=== PATIENT | male | born 1965 | race Caucasian/White ===

== ENCOUNTER 2017-08-10 06:52 | Observation (INO) | payer BC ==
[2017-08-10] MEDS ORDERED: ACETAMINOPHEN/HYDROcodone 325 MG/7.5 MG TAB PO PRN (13:45)
[2017-08-10] MEDS ORDERED: ONDANSETRON HCL 4 MG/2 ML VIAL IV PUSH PRN (13:45)
[2017-08-10] MEDS ORDERED: ACETAMINOPHEN 500 MG CPLT PO PRN (13:45)
--- NOTE | 2017-08-10 13:47 | HHI.HP ---
[facility] Primary Care Physician Mak Fernandez MD Chief Complaint Chest pain History of Present Illness This is a 52-year-old male that presents to [facility] ED with complaint of left chest discomfort does been constantly present for greater than 24 hours. He was then subsequently transferred via [facility] to the chest pain center to further evaluate his chest discomfort. Describes it as a pressure. Primarily the discomfort was a 2 out of 10. He states he was awoken about 4:00 this morning with the discomfort intensifying to about a 3-4 out of 10. Denies associated shortness breath, nausea, or diaphoresis. Found nothing to worsen or improve it. At the same time this morning he developed a numbness/tingling in the left arm which she states is not terribly unusual for him. 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 He states that he had a stress test to 3 years ago secondary to the numbness/tingling in his left arm and that it was okay. Not followed by luggage liner. Denies hypertension, hyperlipidemia, diabetes, and known CAD. Lifetime nonsmoker. States he exercises essentially daily. 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 Has no discomforts in chest while doing this. Denies recent illness. Denies fevers or chills. Review of Systems General: Patient denies fevers, chills recent, and recent travel HEENT: Patient denies headache, sore throat, difficulty swallowing. Cardiovascular: Has the chest discomfort as mentioned above. Denies sensation of heart beating rapidly or irregularly. No syncope. Denies diaphoresis. Respiratory: Denies shortness of breath or inspirational chest discomfort. Denies coughing wheezing or hemoptysis. GI: Patient denies nausea, vomiting, diarrhea, abdominal pain, bloody stools. Musculoskeletal: Patient denies joint pain or edema. Denies calf pain or edema. Neurovascular: Patient denies numbness, tingling, weakness in extremities. Denies headache. Endocrine: Denies polyuria and polydipsia. Hematologic: Denies easy bruising. Skin: Denies rash or itching. Past Family Social History Allergies: Coded Allergies: No Known Allergies (Unverified , 08/10/17) Past Medical History Kidney stones. GERD. Denies hypertension, hyperlipidemia, diabetes, CAD, and tobacco abuse. Past Surgical History Kidney stones. Hernia repair. Reported Medications Reported Meds & Active Scripts Active No Active Prescriptions or Reported Medications Family History States that his father had CAD in his 60s. Had a CABG. Social History Lifetime nonsmoker. Has occasional alcohol. Denies illicit drugs. 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 Physical Exam Physical Exam GENERAL: This is a well-nourished, well-developed patient, in no apparent distress. Patient speaks in clear complete sentences. Patient is pleasant. HEENT: Head is atraumatic and normocephalic. Neck is supple without lymphadenopathy and trachea is midline. No JVD or carotid bruits. CARDIOVASCULAR: Regular rate and rhythm without murmurs, gallops, or rubs. RESPIRATORY: Clear to auscultation. Breath sounds equal bilaterally. No wheezes , rales, or rhonchi. Left upper chest wall has some soreness when palpating per the patient but states it does not worsen the pain that he has had. No use of accessory muscles. GASTROINTESTINAL: Abdomen is nontender, nondistended. Abdomen soft. No obvious pulsatile mass or bruit. No CVA tenderness. Strong femoral pulses bilaterally. Normal bowel sounds in all quadrants. MUSCULOSKELETAL: Patient is moving upper and lower extremities freely. No calf tenderness or edema, no Homans sign. Strong pulses in upper and lower extremities. NEUROLOGICAL: Patient is alert and oriented. Cranial nerves 2-12 are grossly intact. No focal deficits and speech is clear. SKIN: No rash and turgor is normal. Course EKGs: Initial EKGs have sinus rhythm without significant ST segment depressions or elevations. Caprini VTE Risk Assessment Caprini VTE Risk Assessment: No/Low Risk (score <= 1) Caprini Risk Assessment Model Point Value = 1 Point Value = 2 Point Value = 3 Point Value = 5 Age 41-60 Minor surgery BMI > 25 kg/m2 Swollen legs Varicose veins or History of unexplained or recurrent spontaneous Oral contraceptives or hormone replacement Sepsis (< 1 month) Serious lung disease, including pneumonia (< 1 month) Abnormal pulmonary function Acute myocardial infarction Congestive heart failure (< 1 month) History of inflammatory bowel disease Medical patient at bed rest Age 61-74 Arthroscopic surgery Major open surgery (> 45 min) Laparoscopic surgery (> 45 min) Malignancy Confined to bed (> 72 hours) Immobilizing plaster cast Central venous access Age >= 75 History of VTE Family history of VTE Factor V Leiden Prothrombin [id number] Lupus anticoagulant Anticardiolipin antibodies Elevated serum homocysteine Heparin-induced thrombocytopenia Other congenital or acquired thrombophilia Stroke (< 1 month) Elective arthroplasty Hip, pelvis, or leg fracture Acute spinal cord injury (< 1 month) Prophylaxis Regimen Total Risk Factor Score Risk Level Prophylaxis Regimen 0-1 Low Early ambulation 2 Moderate Order ONE of the following: *Sequential Compression Device (SCD) *Heparin 5000 units SQ BID 3-4 Higher Order ONE of the following medications: *Heparin 5000 units SQ TID *Enoxaparin/Lovenox 40 mg SQ daily (WT < 150 kg, CrCl > 30 mL/min) *Enoxaparin/Lovenox 30 mg SQ daily (WT < 150 kg, CrCl > 10-29 mL/min) *Enoxaparin/Lovenox 30 mg SQ BID (WT < 150 kg, CrCl > 30 mL/min) AND/OR *Sequential Compression Device (SCD) 5 or more Highest Order ONE of the following medications: *Heparin 5000 units SQ TID (Preferred with Epidurals) *Enoxaparin/Lovenox 40 mg SQ daily (WT < 150 kg, CrCl > 30 mL/min) *Enoxaparin/Lovenox 30 mg SQ daily (WT < 150 kg, CrCl > 10-29 mL/min) *Enoxaparin/Lovenox 30 mg SQ BID (WT < 150 kg, CrCl > 30 mL/min) AND *Sequential Compression Device (SCD) Assessment and Plan Assessment and Plan * Atypical chest pain: Patient has had serial cardiac enzymes and EKGs for ruling out purposes even though he has had discomfort for greater than 24 hours constantly. He will be seen by luggage liner and chest pain center. He'll likely undergo a Dino protocol ETT and be discharged stress testing is nonischemic. He should return to ED for interval issues. Patient is stable this time. He is agreeable to this plan. Dixon Butler Aug 10, 2017 13:47
[2017-08-10 15:08] VITALS: BP 142/89; PULSE 97; RESP 18; TEMP 98.2; O2SAT 94
[2017-08-10] MEDS: PANTOPRAZOLE SOD 40 MG DELAYED RELEASE TAB PO SCH (15:27)
[2017-08-10] MEDS ORDERED: RESP: ALBUTEROL 2.5 MG/IPRATROPIUM 0.5 MG NEB (PRN) INH (17:00)
[2017-08-10] MEDS ORDERED: ALPRAZolam 0.25 MG TAB PO PRN (17:00)
[2017-08-10] MEDS ORDERED: cloNIDine HCL 0.1 MG TAB PO PRN (17:00)
[2017-08-10 21:02] VITALS: BP 111/72; PULSE 91; RESP 20; TEMP 97.2; O2SAT 93
[2017-08-11 00:22] VITALS: BP 94/53; PULSE 72; RESP 18; TEMP 97.2; O2SAT 94
[2017-08-11 04:00] VITALS: BP 101/59; PULSE 74; RESP 18; TEMP 96.2; O2SAT 95
[2017-08-11 08:27] VITALS: BP 113/71; PULSE 65; RESP 20; TEMP 98.1; O2SAT 94
[2017-08-11] MEDS ORDERED: ASPIRIN 325 MG TAB PO SCH (09:00)
[2017-08-11] MEDS: PANTOPRAZOLE SOD 40 MG DELAYED RELEASE TAB PO SCH (09:40)
--- NOTE | 2017-08-11 09:51 | TR ---
Date Performed: 08/10/2017 Time Performed: 14:07:09 DOCTOR: Albaro Raines DRUG LIST: CLINICAL HISTORY: REASON FOR TEST: Chest pain REASON FOR ENDING: OBSERVATION: CONCLUSION: CHATO PROTOCOL. CONSTANT CP DID NOT WORSEN DURING ETT. TEST STOPPED AFTER EXCEEDING GOAL HR SECONDARY TO SOB AND LEG FATIGUE.Maximum DT=391 % Max HR Revgworz=946.0% Maximum IU=400/90 To alirio Exercise Time=10:01 COMMENTS: Conclusion: Normal treadmill exercise. No evidence of ischemia.
--- NOTE | 2017-08-11 09:55 | HHI.DCPOC ---
Discharge Care Plan Diagnosis: (1) Chest pain, atypical Goals to Promote Your Health * To prevent worsening of your condition and complications * To maintain your health at the optimal level Directions to Meet Your Goals Take your medications as prescribed Follow your dietary instruction Follow activity as directed Keep your appointments as scheduled Take your immunizations and boosters as scheduled If your symptoms worsen call your PCP, if no PCP go to Urgent Care Center or Emergency Room Smoking is Dangerous to Your Health. Avoid second hand smoke Call the 24-hour hour crisis hotline for domestic abuse at Dixon Butler Aug 11, 2017 09:55
== END 2017-08-11 13:34 | disposition home or self-care (01) ==
LOC: NEDDLT 13:08 → NEPHCDU 13:18
PROVIDERS: ADMIT Internal Medicine Interventional Cardiology; ATTEND Internal Medicine Interventional Cardiology
DX: R07.89 Other chest pain (principal); K21.9 Gastro-esophageal reflux disease without esophagitis; Z87.442 Personal history of urinary calculi; R20.2 Paresthesia of skin
CPT/HCPCS: 71046; 80053; 82550; 82552; 83690; 83735; 84484; 85025; 85610; 85730; 93005; 93017; 99285; G0378